=== PATIENT | male | born 1985 | race Caucasian/White ===

== ENCOUNTER 2016-07-23 12:04 | Emergency (ER) | payer OTHER ==
[2016-07-23] MEDS ORDERED: ZOFRAN IV ONE (12:27)
[2016-07-23] MEDS ORDERED: MORPHINE IV ONE (12:37)
--- NOTE | 2016-07-23 12:45 | Emergency Department Report ---
ED Fall HPI - General Chief Complaint: Fall Stated Complaint: FELL OFF LADDER/BODY PAIN Time Seen by Provider: 07/23/16 12:18 Source: patient Mode of arrival: Ambulatory Limitations: No Limitations - History of Present Illness Initial Comments: 30-year-old male presents to the emergency department after a fall. Patient states that he was on a ladder, pressure washing inside the house when the ladder slipped. Patient states he fell approximately [address] He states he landed on his chest. He does report loss of consciousness. Patient is complaining of chest pain, neck pain, and headache. He is also complaining of left thigh pain. He does have some numbness in his left hand. There are no other complaints. MD Complaint: fall -: Sudden, This morning Fall From: from height (distance) (~20 feet) When Fall Occurred: just prior to arrival Fall Witnessed: yes, by family Place Fall Occurred: home Loss of Consciousness: yes Prolonged Down Time?: no Symptoms Prior to Fall: none Location: head, neck, chest Location - Extremities: Left: Thigh Severity: moderate Quality: aching Context: tripped/slipped Associated Symptoms: headache, neck pain, numbness, chest paint - Related Data Previous Rx's Medication Instructions Recorded Last Taken Type Cyclobenzaprine [Flexeril] 10 mg PO TID PRN #30 tablet 07/23/16 Unknown Rx HYDROcodone/APAP 5-325 [[place] 1 each PO Q6HR PRN #30 tablet 07/23/16 Unknown Rx 5/325] Allergies Allergy/AdvReac Type Severity Reaction Status Date / Time No Known Allergies Allergy Unverified 07/23/16 12:15 ED Review of Systems ROS: Stated complaint: FELL OFF LADDER/BODY PAIN Other details as noted in HPI Comment: All other systems reviewed and negative Cardiovascular: chest pain Musculoskeletal: as per HPI (neck pain, left thigh pain) Neurological: headache ED Past Medical Hx - Past Medical History Previous Medical History?: No - Surgical History Past Surgical History?: Yes Hx Appendectomy: Yes - Family History Family history: no significant - Social History Smoking Status: Never Smoker Substance Use Type: None - Medications Home Medications: Home Medications Medication Instructions Recorded Confirmed Last Taken Type Cyclobenzaprine [Flexeril] 10 mg PO TID PRN #30 tablet 07/23/16 Unknown Rx HYDROcodone/APAP 5-325 [[place] 1 each PO Q6HR PRN #30 tablet 07/23/16 Unknown Rx 5/325] ED Physical Exam - General Limitations: No Limitations General appearance: alert, in no apparent distress - Head Head exam: Present: atraumatic, normocephalic - Eye Eye exam: Present: normal appearance, PERRL, EOMI - ENT ENT exam: Present: normal exam, normal orophraynx, mucous membranes moist - Neck Neck exam: Present: normal inspection, tenderness (tenderness to palpation in the high cervical spine.) - Respiratory Respiratory exam: Present: normal lung sounds bilaterally, chest wall tenderness (anterior chest wall tenderness to palpation, mostly on the right. No crepitus or deformity.). Absent: respiratory distress - Cardiovascular Cardiovascular Exam: Present: regular rate, normal rhythm, normal heart sounds - GI/Abdominal GI/Abdominal exam: Present: soft, normal bowel sounds. Absent: distended, tenderness - Extremities Exam Extremities exam: Present: normal inspection, full ROM. Absent: tenderness - Back Exam Back exam: Present: normal inspection, full ROM, tenderness, muscle spasm, paraspinal tenderness (right mid thoracic). Absent: CVA tenderness (R), CVA tenderness (L), vertebral tenderness - Neurological Exam Neurological exam: Present: alert, oriented X3. Absent: motor sensory deficit - Skin Skin exam: Present: warm, dry, intact ED Course Vital Signs 07/23/16 07/23/16 12:12 13:54 Temperature 98.8 F Pulse Rate 78 Respiratory 18 18 Rate Blood Pressure 131/89 O2 Sat by Pulse 100 Oximetry ED Medical Decision Making - Lab Data Result diagrams: 07/23/16 12:42 07/23/16 12:42 - Radiology Data Radiology results: report reviewed, image reviewed CT of the head and cervical spine revealed no acute traumatic injuries. X-ray of the chest and left femur also showed no acute traumatic injury. - Medical Decision Making Patient is being placed in a cervical collar due to his neck pain from height. Obtaining labs and imaging studies. Will reassess. 1410-lab and imaging results reviewed and discussed with the patient. - Differential Diagnosis fall, contusion, fracture Critical care attestation.: If time is entered above; I have spent that time in minutes in the direct care of this critically ill patient, excluding procedure time. ED Disposition Clinical Impression: Muscle spasm of back Fall from ladder Qualifiers: Encounter type: initial encounter Qualified Code(s): W11.XXXA - Fall on and from ladder, initial encounter Chest wall contusion Qualifiers: Encounter type: initial encounter Laterality: right Qualified Code(s): S20.211A - Contusion of right front wall of thorax, initial encounter Disposition: DISCHARGED TO HOME OR SELFCARE Is pt being admited?: No Condition: Stable Instructions: Contusion in Adults (ED), Muscle Spasm (ED) Prescriptions: Cyclobenzaprine [Flexeril] 10 mg PO TID PRN #30 tablet PRN Reason: Muscle Spasm HYDROcodone/APAP 5-325 [[place] 5/325] 1 each PO Q6HR PRN #30 tablet PRN Reason: Pain Referrals: PRIMARY CARE,MD [Primary Care Provider] - 3-5 Days Time of Disposition: 14:12
[2016-07-23 12:54] LABS: Basophils % (Auto) 0.9 % (0.0-1.8); Eosinophils % (Auto) 0.6 % (0.0-4.3); Hematocrit 45.4 % (35.5-45.6); Hemoglobin 15.3 gm/dl (11.8-15.2); Mean Corpuscular HGB Conc 34 % (32-34); Mean Corpuscular Hemoglobin 29 pg (28-32); Mean Corpuscular Volume 87 fl (84-94); Platelet Count 199 K/mm3 (140-440); Red Blood Count 5.23 M/mm3 (3.65-5.03); Red Cell Distribution Width 12.8 % (13.2-15.2); White Blood Count 7.4 K/mm3 (4.5-11.0)
[2016-07-23 12:58] LABS: INR 1.02 (0.87-1.13)
--- NOTE | 2016-07-23 13:00 | Cat Scan Report ---
CT SCAN OF THE CERVICAL SPINE: HISTORY: Neck pain after fall. TECHNIQUE: Contiguous 1.25 mm axial images of the cervical spine were obtained. Sagittal and coronal reformatted images. FINDINGS: There is normal alignment of the cervical spine. The body, pedicles and posterior ligaments appear normal. No evidence of fracture or subluxation is seen. The spinal canal appears normal. The prevertebral soft tissues appear normal. IMPRESSION: Unremarkable CT of the cervical spine. No acute process is noted.
--- NOTE | 2016-07-23 13:00 | Cat Scan Report ---
CT HEAD WITHOUT CONTRAST INDICATION: Fall. COMPARISON: None similar. FINDINGS: Noncontrast head CT demonstrates normal ventricles and sulci without acute or recent infarct, hemorrhage, mass effect or midline shift. No abnormal extra-axial fluid collections. Posterior fossa structures and basilar cisterns appear within normal limits. Symmetric eye globes. Mild right maxillary and left frontal ethmoid sinus mucosal thickening. Approximately 1.9 cm left maxillary sinus mucus retention cyst as well. Clear remainder paranasal sinuses and mastoid air cells. Intact calvarium. Normal overlying scalp soft tissues. Numerous radiopaque dental material incidentally noted. CONCLUSION: No acute intracranial CT abnormality with sinus disease noted, as described. Thank you for the opportunity to participate in this patient's care.
[2016-07-23 13:12] LABS: Alanine Aminotransferase 26 units/L (7-56); Albumin 4.4 g/dL (3.9-5); Albumin/Globulin Ratio 1.3 %; Alkaline Phosphatase 70 units/L (35-129); Anion Gap 16 mmol/L; Bilirubin,Total 0.4 mg/dL (0.1-1.2); Blood Urea Nitrogen 11 mg/dL (9-20); Calcium 9.7 mg/dL (8.4-10.2); Carbon Dioxide 24 mmol/L (22-30); Chloride 97.4 mmol/L (98-107); Glucose 102 mg/dL (75-100); Potassium 4.5 mmol/L (3.6-5.0); Sodium 133 mmol/L (137-145); Total Protein 7.8 g/dL (6.3-8.2)
--- NOTE | 2016-07-23 13:54 | XRay Report ---
CHEST 2 VIEWS INDICATION: Fall. COMPARISON: None similar. FINDINGS: Frontal and lateral chest radiographs demonstrate hypoinflation with mild exaggerated cardiomediastinal silhouette and crowded lung markings. No pleural effusions or CHF. No acute osseous process. CONCLUSION: Limited exam without definite acute disease, as described. Please correlate. Thank you for the opportunity to participate in this patient's care.
--- NOTE | 2016-07-23 13:56 | XRay Report ---
LEFT FEMUR: History: Left leg pain. AP and lateral views of the femur demonstrate normal mineralization and contours for this patient's age. No destructive changes are noted and the adjacent soft tissues are normal. IMPRESSION: Normal left femur.
[2016-07-23 14:39] VITALS: BP 117/81
--- NOTE | 2016-07-23 19:01 | Emergency Department Report ---
Entered by VI VERNON, acting as scribe for JOI RICKS PA. Chief Complaint: Fall Stated Complaint: FELL OFF LADDER/BODY PAIN Time Seen by Provider: 07/23/16 12:17 - HPI History of Present Illness: Patient presents to the ED c/o back pain and chest pain. Pt states he was witnessed falling off a ladder and hitting grass area. LOC after fall injury. Rates pain a 10/10 in severity. Notes that patient he hit head after fall. Reports frontal headache, left leg pain, and nausea. - ROS Review of Systems: All system are negative unless stated in HPI above. - Exam Vital Signs: Vital Signs 07/23/16 12:12 Temperature 98.8 F Pulse Rate 78 Respiratory 18 Rate Blood Pressure 131/89 O2 Sat by Pulse 100 Oximetry Physical Exam: General: well nourished, well developed, nontoxic in appearance, in no acute distress Head: normocephalic, atraumatic Chest: chest wall TTP bilaterally Respiratory: lungs are clear and equal Neck: Positive C-spine tenderness and midline tenderness. C-spine FROM. Neurological: normal gait, A&O x 3. GCS 15. MSE screening note: Focused history and physical exam performed. Due to findings the following was ordered: ED Medical Decision Making - Medical Decision Making Medical decision making: Patient seen by provider in triage area. Appropriate protocol activated and patient to main ed now ED Disposition for MSE Condition: Stable Referrals: PRIMARY CARE,MD [Primary Care Provider] - 3-5 Days This documentation as recorded by the scribe,VI VERNON,accurately reflects the service I personally performed and the decisions made by me,JOI RICKS PA.
== END 2016-07-23 14:41 | disposition home or self-care (01) ==
LOC: ED 12:04
DX: S20.211A Contusion of right front wall of thorax, initial encounter (principal); M62.830 Muscle spasm of back; W11.XXXA Fall on and from ladder, initial encounter; Y93.89 Activity, other specified; Y99.8 Other external cause status; Y92.009 Unspecified place in unspecified non-institutional (private) residence as the place of occurrence of the external cause
CPT/HCPCS: 36415; 70450; 71020; 72125; 73552; 80053; 85025; 85610; 85730; 86850; 86900; 86901; 96374; 96375; 99284; G0480; J2270; J2405; 80320